=== PATIENT | female | born 1935 | race Caucasian/White ===

== ENCOUNTER 2024-07-03 18:41 | Inpatient (IN) ==
[2024-07-03 19:03] LABS: ABS Eosinophils 0.4 10^3/uL (0.0-0.5); ABS Lymphocytes 1.5 10^3/uL (1.0-4.8); ABS Monocytes 0.6 10^3/uL (0.0-0.9); ABS Neutrophils 3.7 10^3/uL (1.5-7.6); Eosinophil % 6.3 %; Hematocrit 30.8 % (35-45); Hemoglobin 9.9 g/dL (11.5-14.3); Lymphocyte % 23.5 %; Mean Corpuscular Hemoglobin 24.4 pg (27-33); Mean Corpuscular Volume 76.2 fL (80-97); Mean Platelet Volume 7.7 fL (7.5-11.2); Nucleated Red Blood Cells % 0.1 %/100WBC (0.0-0.8); Platelet Count 275 10^3/uL (150-450); Red Blood Count 4.04 10^6/uL (3.63-4.92); Red Cell Distribution Width 16.6 % (12-17); White Blood Count 6.2 10^3/uL (3.8-11.8)
[2024-07-03 19:16] LABS: INR 1.13 (0.85-1.14)
[2024-07-03 19:23] LABS: High Sens Troponin Baseline 30 pg/mL (<15)
[2024-07-03 19:38] LABS: ALT 15 U/L (7-52); AST 18 U/L (13-39); Albumin 3.8 g/dL (3.2-5.2); Albumin/Globulin Ratio 1.6 (1-3); Alkaline Phosphatase 90 U/L (35-149); Anion Gap 6 mmol/L (2-16); Blood Urea Nitrogen 24 mg/dL (6-24); CO2 Carbon Dioxide 27 mmol/L (22-32); Calcium 8.9 mg/dL (8.6-10.3); Chloride 106 mmol/L (101-111); Creatinine, Serum 1.13 mg/dL (0.51-0.95); Globulin 2.4 g/dL (2-4); Glucose 122 mg/dL (70-100); Potassium 4.3 mmol/L (3.5-5.0); Sodium 139 mmol/L (135-145); Total Bilirubin 0.2 mg/dL (0.2-1.0); Total Protein 6.2 g/dL (6.4-8.9); eGFR CKD-EPI 47.1 (>60)
[2024-07-03 20:34] LABS: High Sensitivity Troponin 1 Hr 247 pg/mL (<15)
[2024-07-03] MEDS: Enoxaparin 60 MG/0.6 ML SYR SUBCUT ONE (21:01)
[2024-07-03 22:02] LABS: % Iron Saturation 4 % (15-55); .Transferrin 321 mg/dL (203-362); Cholesterol 203 mg/dL; HDL Cholesterol 62.4 mg/dL; Iron < 20 ug/dL (50-212); LDL Cholesterol 109 mg/dL; Total Iron Binding Capacity 449 mcg/dL (250-450); Triglycerides 160 mg/dL; Unsaturated Iron Binding 429 ug/dL
[2024-07-03] MEDS ORDERED: Sulfur Hexaflouride MICROSPHR 25 MG VIAL IV PRN (22:04)
[2024-07-03 22:23] LABS: Ferritin 5.7 ng/mL (11-307)
[2024-07-03 23:14] LABS: High Sensitivity Troponin 3 Hr 2391 pg/mL (<15)
[2024-07-04] MEDS: Heparin DRIP 25,000 UNITS BAG 25,000 UNITS/250 ML BAG IV SCH ×2 (00:52→08:11)
[2024-07-04] MEDS: Lactated Ringers 1000 ml BAG 1,000 ML IV ONE (02:12)
[2024-07-04 06:43] LABS: ABS Basophils 0.1 10^3/uL (0.0-0.1); ABS Eosinophils 0.4 10^3/uL (0.0-0.5); ABS Lymphocytes 1.7 10^3/uL (1.0-4.8); ABS Monocytes 0.6 10^3/uL (0.0-0.9); ABS Neutrophils 3.7 10^3/uL (1.5-7.6); ABS Nucleated RBC 0.01 10^3/ul; Eosinophil % 6.6 %; Hematocrit 28.4 % (35-45); Hemoglobin 9.5 g/dL (11.5-14.3); Lymphocyte % 26.2 %; Mean Corpuscular Hemoglobin 25.2 pg (27-33); Mean Corpuscular Hgb Conc 33.4 g/dL (31-36); Mean Corpuscular Volume 75.7 fL (80-97); Mean Platelet Volume 7.6 fL (7.5-11.2); Nucleated Red Blood Cells % 0.1 %/100WBC (0.0-0.8); Platelet Count 230 10^3/uL (150-450); Red Blood Count 3.75 10^6/uL (3.63-4.92); White Blood Count 6.4 10^3/uL (3.8-11.8)
[2024-07-04 07:24] LABS: Calcium 8.1 mg/dL (8.6-10.3); Creatinine, Serum 0.82 mg/dL (0.51-0.95); Potassium 4.2 mmol/L (3.5-5.0); eGFR CKD-EPI 69.2 (>60)
[2024-07-04] MEDS ORDERED: Heparin 5000 UNITS/ML 1 mL VIAL IV SCH (08:00)
[2024-07-04 09:58] LABS: High Sensitivity Troponin 1 Hr 705 pg/mL (<15)
[2024-07-04 12:11] LABS: ABS Basophils 0.1 10^3/uL (0.0-0.1); ABS Eosinophils 0.4 10^3/uL (0.0-0.5); ABS Lymphocytes 1.6 10^3/uL (1.0-4.8); ABS Monocytes 0.6 10^3/uL (0.0-0.9); ABS Neutrophils 4.4 10^3/uL (1.5-7.6); ABS Nucleated RBC 0.01 10^3/ul; Eosinophil % 5.8 %; Hematocrit 29.5 % (35-45); Hemoglobin 9.6 g/dL (11.5-14.3); Lymphocyte % 22.3 %; Mean Corpuscular Hemoglobin 24.8 pg (27-33); Mean Corpuscular Hgb Conc 32.6 g/dL (31-36); Mean Corpuscular Volume 75.9 fL (80-97); Mean Platelet Volume 7.8 fL (7.5-11.2); Nucleated Red Blood Cells % 0.1 %/100WBC (0.0-0.8); Platelet Count 236 10^3/uL (150-450); Red Blood Count 3.88 10^6/uL (3.63-4.92); Red Cell Distribution Width 16.6 % (12-17)
[2024-07-04] MEDS ORDERED: Enoxaparin 60 MG/0.6 ML SYR SUBCUT SCH (21:00)
[2024-07-04 21:23] LABS: High Sensitivity Troponin 1 Hr 207 pg/mL (<15)
[2024-07-05 06:06] LABS: ABS Basophils 0.1 10^3/uL (0.0-0.1); ABS Eosinophils 0.6 10^3/uL (0.0-0.5); ABS Lymphocytes 1.7 10^3/uL (1.0-4.8); ABS Monocytes 0.7 10^3/uL (0.0-0.9); ABS Neutrophils 3.5 10^3/uL (1.5-7.6); Eosinophil % 9.1 %; Hematocrit 28.8 % (35-45); Hemoglobin 9.3 g/dL (11.5-14.3); Lymphocyte % 26.3 %; Mean Corpuscular Hemoglobin 24.8 pg (27-33); Mean Corpuscular Hgb Conc 32.4 g/dL (31-36); Mean Corpuscular Volume 76.5 fL (80-97); Platelet Count 211 10^3/uL (150-450); Red Blood Count 3.77 10^6/uL (3.63-4.92); Red Cell Distribution Width 17.2 % (12-17); White Blood Count 6.5 10^3/uL (3.8-11.8)
[2024-07-05 06:21] LABS: Albumin 3.1 g/dL (3.5-5.7); Albumin/Globulin Ratio 1.4 (1-3); Calcium 8.1 mg/dL (8.6-10.3); Creatinine, Serum 0.95 mg/dL (0.51-0.95); Globulin 2.2 g/dL (2-4); Magnesium 2.2 mg/dL (1.9-2.7); Potassium 4.2 mmol/L (3.5-5.0); Total Bilirubin 0.2 mg/dL (0.2-1.0); Total Protein 5.3 g/dL (6.4-8.9)
[2024-07-05] MEDS ORDERED: Naloxone 0.4 mg VIAL 0.4 mg/ml 1 ml VIAL IV PRN (14:02)
[2024-07-05] MEDS ORDERED: Ondansetron 4 mg VIAL 2 MG/ML 2 ml VIAL IV PRN (14:02)
[2024-07-05] MEDS ORDERED: fentaNYL 100 mcg/2 ml 50 MCG/ML VIAL IV PRN (14:02)
[2024-07-05] MEDS ORDERED: Propofol 10 MG/ML 20 ML BTL ONE (14:49)
[2024-07-05] MEDS ORDERED: NS 0.45% 1000 ml BAG 1,000 ML IV SCH (15:00)
[2024-07-05] MEDS: Carboxymethylcellulos 1% OPTH 1 AMP BOTH EYES SCH (16:49)
[2024-07-05] MEDS: PEG 3000 GI LAVAGE 1 GALLON PO ONE (16:49)
[2024-07-05] MEDS: Buffered Lidocaine 1% SYRIN 1 ml INTRADERM ONE (17:40)
[2024-07-05] MEDS: Acetaminophen IV 1 GM/100ML 1,000 MG/100 ML BAG IV ONE (17:40)
[2024-07-05] MEDS: Scopolamine 1 mg/72hr PATCH TRANSDERM ONE (17:40)
[2024-07-05] MEDS: Iodixanol 320 (CONTRAST) 100 ML SDV IV ONE (17:40)
[2024-07-05] MEDS: Lactated Ringers 1000 ml BAG 1,000 ML IV SCH (17:41)
[2024-07-06 06:10] LABS: ABS Basophils 0.1 10^3/uL (0.0-0.1); ABS Eosinophils 0.5 10^3/uL (0.0-0.5); ABS Lymphocytes 1.4 10^3/uL (1.0-4.8); ABS Monocytes 0.7 10^3/uL (0.0-0.9); ABS Neutrophils 3.7 10^3/uL (1.5-7.6); Eosinophil % 8.2 %; Hematocrit 30.1 % (35-45); Hemoglobin 9.6 g/dL (11.5-14.3); Lymphocyte % 22.3 %; Mean Corpuscular Hemoglobin 24.2 pg (27-33); Mean Corpuscular Hgb Conc 31.8 g/dL (31-36); Mean Corpuscular Volume 76.1 fL (80-97); Mean Platelet Volume 7.8 fL (7.5-11.2); Platelet Count 232 10^3/uL (150-450); Red Blood Count 3.96 10^6/uL (3.63-4.92); Red Cell Distribution Width 16.4 % (12-17); White Blood Count 6.3 10^3/uL (3.8-11.8)
[2024-07-06 06:51] LABS: Calcium 8.2 mg/dL (8.6-10.3); Creatinine, Serum 0.82 mg/dL (0.51-0.95); Potassium 3.9 mmol/L (3.5-5.0); eGFR CKD-EPI 69.2 (>60)
[2024-07-06] MEDS: SYSTANE ULTRA BOTH EYES SCH (14:02)
[2024-07-06] MEDS ORDERED: Naloxone 0.4 mg VIAL 0.4 mg/ml 1 ml VIAL IV PRN (14:32)
[2024-07-06] MEDS ORDERED: Ondansetron 4 mg VIAL 2 MG/ML 2 ml VIAL ONE (15:23)
[2024-07-06] MEDS ORDERED: Propofol 10 MG/ML 20 ML BTL ONE (15:23)
[2024-07-07 07:14] LABS: ABS Basophils 0.1 10^3/uL (0.0-0.1); ABS Eosinophils 0.5 10^3/uL (0.0-0.5); ABS Lymphocytes 1.5 10^3/uL (1.0-4.8); ABS Monocytes 0.6 10^3/uL (0.0-0.9); ABS Neutrophils 4.5 10^3/uL (1.5-7.6); Eosinophil % 6.6 %; Hematocrit 27.8 % (35-45); Lymphocyte % 20.6 %; Mean Corpuscular Hemoglobin 24.8 pg (27-33); Mean Corpuscular Hgb Conc 32.3 g/dL (31-36); Mean Corpuscular Volume 76.6 fL (80-97); Mean Platelet Volume 7.8 fL (7.5-11.2); Platelet Count 198 10^3/uL (150-450); Red Blood Count 3.64 10^6/uL (3.63-4.92); Red Cell Distribution Width 16.7 % (12-17); White Blood Count 7.1 10^3/uL (3.8-11.8)
[2024-07-07 07:55] LABS: Calcium 8.2 mg/dL (8.6-10.3); Creatinine, Serum 0.89 mg/dL (0.51-0.95); Potassium 4.1 mmol/L (3.5-5.0); eGFR CKD-EPI 62.7 (>60)
[2024-07-07] MEDS: Ferric Gluconate IV 250 MG in NS 0.9% 250 ml 200 ML IVPB SCH (12:21)
[2024-07-07] MEDS: Heparin 5000 UNITS/ML 1 mL VIAL SUBCUT SCH (20:23)
[2024-07-08 07:40] LABS: Hematocrit 26.9 % (35-45); Hemoglobin 8.8 g/dL (11.5-14.3); Mean Corpuscular Hemoglobin 25.3 pg (27-33); Mean Corpuscular Hgb Conc 32.8 g/dL (31-36); Mean Corpuscular Volume 77.1 fL (80-97); Mean Platelet Volume 8.2 fL (7.5-11.2); Platelet Count 219 10^3/uL (150-450); Red Blood Count 3.48 10^6/uL (3.63-4.92); Red Cell Distribution Width 16.8 % (12-17); White Blood Count 6.2 10^3/uL (3.8-11.8)
[2024-07-08 08:04] LABS: Calcium 8.1 mg/dL (8.6-10.3); Creatinine, Serum 0.91 mg/dL (0.51-0.95); Potassium 4.3 mmol/L (3.5-5.0); eGFR CKD-EPI 61.1 (>60)
[2024-07-08] MEDS ORDERED: LORATADINE 10 MG PO SCH (09:00)
[2024-07-08] MEDS: Iohexol 300 (CONTRAST) 10 ML SDV IV ONE (17:03)
[2024-07-09 05:41] LABS: ABS Basophils 0.1 10^3/uL (0.0-0.1); ABS Eosinophils 0.5 10^3/uL (0.0-0.5); ABS Lymphocytes 1.4 10^3/uL (1.0-4.8); ABS Monocytes 0.6 10^3/uL (0.0-0.9); ABS Neutrophils 2.9 10^3/uL (1.5-7.6); Hemoglobin 8.4 g/dL (11.5-14.3); Lymphocyte % 26.3 %; Mean Corpuscular Hemoglobin 24.9 pg (27-33); Mean Corpuscular Hgb Conc 32.2 g/dL (31-36); Mean Corpuscular Volume 77.1 fL (80-97); Mean Platelet Volume 8.3 fL (7.5-11.2); Nucleated Red Blood Cells % 0.1 %/100WBC (0.0-0.8); Platelet Count 194 10^3/uL (150-450); Red Blood Count 3.38 10^6/uL (3.63-4.92); Red Cell Distribution Width 16.7 % (12-17); White Blood Count 5.5 10^3/uL (3.8-11.8)
[2024-07-09 06:17] LABS: Calcium 8.7 mg/dL (8.6-10.3); Creatinine, Serum 0.96 mg/dL (0.51-0.95); Magnesium 2.1 mg/dL (1.9-2.7); Potassium 4.2 mmol/L (3.5-5.0); eGFR CKD-EPI 57.3 (>60)
[2024-07-09] MEDS ORDERED: Aminophylline 25 MG/ML VIAL ONE (08:44)
[2024-07-09] MEDS ORDERED: Regadenoson 0.4 MG/5 ML SYRINGE ONE (08:44)
[2024-07-09 18:51] LABS: High Sensitivity Troponin 1 Hr 1490 pg/mL (<15)
[2024-07-10 06:31] LABS: ABS Basophils 0.1 10^3/uL (0.0-0.1); ABS Eosinophils 0.5 10^3/uL (0.0-0.5); ABS Lymphocytes 1.3 10^3/uL (1.0-4.8); ABS Monocytes 0.6 10^3/uL (0.0-0.9); ABS Neutrophils 2.7 10^3/uL (1.5-7.6); Eosinophil % 10.1 %; Hematocrit 26.7 % (35-45); Hemoglobin 8.8 g/dL (11.5-14.3); Lymphocyte % 24.3 %; Mean Corpuscular Hemoglobin 25.3 pg (27-33); Mean Corpuscular Volume 76.6 fL (80-97); Mean Platelet Volume 7.8 fL (7.5-11.2); Platelet Count 207 10^3/uL (150-450); Red Blood Count 3.49 10^6/uL (3.63-4.92); Red Cell Distribution Width 16.5 % (12-17); White Blood Count 5.2 10^3/uL (3.8-11.8)
[2024-07-10 07:16] LABS: Calcium 8.3 mg/dL (8.6-10.3); Creatinine, Serum 0.86 mg/dL (0.51-0.95); Potassium 4.2 mmol/L (3.5-5.0); eGFR CKD-EPI 65.3 (>60)
[2024-07-10] MEDS ORDERED: Midazolam 5 mg/5 ml VIAL 1 mg/ml 5 ml VIAL (5 mg) ONE (07:49)
[2024-07-10] MEDS ORDERED: niCARdipine 0.1MG/ML IVPREMIX 20 MG/200 ML BAG IV ONE (07:50)
[2024-07-10] MEDS ORDERED: Heparin 1,000 UNIT/ML 10 ml (10,000 UNITS) CATHLAB/DIALYSIS ONE (07:50)
[2024-07-10] MEDS ORDERED: Lidocaine 1% VIAL 10 MG/ML 30 ML VIAL ONE (07:50)
[2024-07-10] MEDS ORDERED: fentaNYL 100 mcg/2 ml 50 MCG/ML VIAL ONE (07:50)
[2024-07-10] MEDS ORDERED: Iohexol 350 (CONTRAST) 200 ML MDV IV ONE (07:50)
[2024-07-10] MEDS ORDERED: Heparin 2 UNITS/ML 1000 mls 2,000 ML IV ONE (07:50)
[2024-07-10] MEDS ORDERED: nitroGLYCERIN DRIP 25,000 MCG/250 ML BTL ONE (07:51)
[2024-07-10] MEDS: Enoxaparin 40 MG/0.4 ML SYR SUBCUT SCH (17:56)
[2024-07-10] MEDS: Triamcinolone 0.5% OINT 1 TUBE TOPICAL PRN (22:33)
[2024-07-11 05:43] LABS: ABS Eosinophils 0.4 10^3/uL (0.0-0.5); ABS Lymphocytes 1.2 10^3/uL (1.0-4.8); ABS Monocytes 0.6 10^3/uL (0.0-0.9); ABS Neutrophils 3.5 10^3/uL (1.5-7.6); ABS Nucleated RBC 0.01 10^3/ul; Eosinophil % 7.1 %; Hematocrit 26.6 % (35-45); Hemoglobin 8.6 g/dL (11.5-14.3); Lymphocyte % 21.4 %; Mean Corpuscular Hemoglobin 25.2 pg (27-33); Mean Corpuscular Hgb Conc 32.4 g/dL (31-36); Mean Corpuscular Volume 77.7 fL (80-97); Nucleated Red Blood Cells % 0.1 %/100WBC (0.0-0.8); Platelet Count 200 10^3/uL (150-450); Red Blood Count 3.42 10^6/uL (3.63-4.92); Red Cell Distribution Width 17.1 % (12-17); White Blood Count 5.8 10^3/uL (3.8-11.8)
[2024-07-11 06:04] LABS: Albumin 3.2 g/dL (3.5-5.7); Albumin/Globulin Ratio 1.5 (1-3); Calcium 8.7 mg/dL (8.6-10.3); Creatinine, Serum 1.09 mg/dL (0.51-0.95); Globulin 2.2 g/dL (2-4); Magnesium 2.1 mg/dL (1.9-2.7); Potassium 4.1 mmol/L (3.5-5.0); Total Bilirubin 0.3 mg/dL (0.2-1.0); Total Protein 5.4 g/dL (6.4-8.9); eGFR CKD-EPI 49.2 (>60)
[2024-07-12 07:40] LABS: ABS Eosinophils 0.6 10^3/uL (0.0-0.5); ABS Lymphocytes 1.5 10^3/uL (1.0-4.8); ABS Monocytes 0.6 10^3/uL (0.0-0.9); ABS Neutrophils 2.8 10^3/uL (1.5-7.6); ABS Nucleated RBC 0.01 10^3/ul; Eosinophil % 10.5 %; Hematocrit 28.1 % (35-45); Hemoglobin 9.1 g/dL (11.5-14.3); Lymphocyte % 27.5 %; Mean Corpuscular Hemoglobin 25.3 pg (27-33); Mean Corpuscular Hgb Conc 32.3 g/dL (31-36); Mean Corpuscular Volume 78.1 fL (80-97); Mean Platelet Volume 8.1 fL (7.5-11.2); Nucleated Red Blood Cells % 0.1 %/100WBC (0.0-0.8); Platelet Count 217 10^3/uL (150-450); Red Blood Count 3.59 10^6/uL (3.63-4.92); Red Cell Distribution Width 17.1 % (12-17); White Blood Count 5.5 10^3/uL (3.8-11.8)
[2024-07-12 08:02] LABS: Calcium 8.5 mg/dL (8.6-10.3); Creatinine, Serum 0.82 mg/dL (0.51-0.95); Potassium 4.1 mmol/L (3.5-5.0); eGFR CKD-EPI 69.2 (>60)
[2024-07-12] MEDS ORDERED: fentaNYL 100 mcg/2 ml 50 MCG/ML VIAL ONE (11:54)
[2024-07-12] MEDS ORDERED: Midazolam 5 mg/5 ml VIAL 1 mg/ml 5 ml VIAL (5 mg) ONE (11:54)
[2024-07-12] MEDS ORDERED: Heparin 1,000 UNIT/ML 10 ml (10,000 UNITS) CATHLAB/DIALYSIS ONE ×2 (11:54→12:00)
[2024-07-12] MEDS ORDERED: Heparin 2 UNITS/ML 1000 mls 1,000 ML IV ONE ×3 (11:55→12:36)
[2024-07-12] MEDS ORDERED: Lidocaine 1% VIAL 10 MG/ML 30 ML VIAL ONE (11:55)
[2024-07-12] MEDS ORDERED: niCARdipine 0.1MG/ML IVPREMIX 20 MG/200 ML BAG IV ONE (11:55)
[2024-07-12] MEDS ORDERED: Iohexol 350 (CONTRAST) 200 ML MDV IV ONE (11:56)
[2024-07-12] MEDS ORDERED: nitroGLYCERIN DRIP 25,000 MCG/250 ML BTL ONE (11:56)
[2024-07-12] MEDS ORDERED: Atropine 0.1 MG/ML 10 ml SYR (1 mg) ONE (13:07)
[2024-07-12] MEDS ORDERED: Iohexol 350 (CONTRAST) 100 ML PAK IV ONE (13:21)
[2024-07-12] MEDS: NS 0.9% 1000 ml BAG 1,000 ML IV SCH (14:43)
[2024-07-12] MEDS: Enoxaparin 30 MG/0.3 ML SYR SUBCUT SCH (17:42)
[2024-07-13 05:06] LABS: ABS Basophils 0.1 10^3/uL (0.0-0.1); ABS Eosinophils 0.4 10^3/uL (0.0-0.5); ABS Lymphocytes 1.1 10^3/uL (1.0-4.8); ABS Monocytes 0.6 10^3/uL (0.0-0.9); ABS Neutrophils 3.9 10^3/uL (1.5-7.6); Eosinophil % 6.7 %; Hemoglobin 8.9 g/dL (11.5-14.3); Lymphocyte % 17.8 %; Mean Corpuscular Hgb Conc 32.9 g/dL (31-36); Mean Platelet Volume 8.2 fL (7.5-11.2); Platelet Count 192 10^3/uL (150-450); Red Blood Count 3.42 10^6/uL (3.63-4.92); Red Cell Distribution Width 17.1 % (12-17)
[2024-07-13 07:05] LABS: Anion Gap 6 mmol/L (2-16); Blood Urea Nitrogen 12 mg/dL (6-24); CO2 Carbon Dioxide 22 mmol/L (22-32); Calcium 8.5 mg/dL (8.6-10.3); Chloride 109 mmol/L (101-111); Creatinine, Serum 0.69 mg/dL (0.51-0.95); Glucose 85 mg/dL (70-100); Sodium 137 mmol/L (135-145); eGFR CKD-EPI 83.9 (>60)
[2024-07-13] MEDS: diPHENhydraMINE CREAM 2%(NF) 28 gm TUBE TOPICAL PRN (08:25)
[2024-07-13 10:33] LABS: Potassium Redraw 3.8 mmol/L (3.5-5.0)
[2024-07-13 13:55] VITALS: BP 125/63
[2024-07-13] MEDS ORDERED: Enoxaparin 40 MG/0.4 ML SYR SUBCUT SCH (18:00)
== END 2024-07-13 14:49 | disposition home or self-care (01) | DRG 322 ==
LOC: ED 18:41 → EDHOLD 18:41 → SUATTDRO 21:20 → MEDTELE 07-04 10:44 → SUATTDRO 07-05 12:00 → ICU 07-12 14:35
PROVIDERS: ADMIT Student in an Organized Health Care Education/Training Program; ATTEND Student in an Organized Health Care Education/Training Program
PROC: O.GIEGD (2024-07-05 15:05)